=== PATIENT | female | born 1975 | race Caucasian/White ===

== ENCOUNTER 2016-11-08 13:44 | Emergency (ER) | payer OTHER ==
[~2016-11-08] VITALS: Ht 170.2 cm; Wt 124.6 kg
[~2016-11-08 13:44] MED LIST: ALBUTEROL17 G1 IH; ASPIR 8181 M1 PO; ASPIRIN325 MG PO; BACTRIM,SEPT1 TABLET PO; BENADRYL50 MG PO; BENZTROPINE ME0.5 MG PO; CEFDINIR300 MG PO; CHLORPROMAZINE25 MG PO; CHOLESTEROL MED; CITRATE OF MAG296 ML PO; CLARITIN-D 121 EACH PO; CLARITIN10 M4 PO; CLEOCIN300 MG PO; CLINDAMYCIN HC300 MG PO; COLACE10 MG/ML RIGHT EAR; COLACE100 MG PO; DEBROX15 ML BOTH EARS; DEPAKOTE ER (E500 M1 PO; DEPAKOTE500 MG PO; DESYREL100 MG PO; DIVALPROEX SOD500 MG; DOCUSATE SODIU100 MG PO; ELIMITE 5% CREA60 GM TP; FENOFIBRATE160 M1; FENOFIBRATE160 M1 PO; FERROUS SULFAT325 MG PO; FERROUS SULFATE; FIORICET 50-301 EACH PO; FIORICET,ESG1 TABLET PO; FLAGYL500 MG PO; FLEXERIL10 MG PO; FLONASE16 GM NS; FLUTICASONE PRO16 GM IH; GABAPENTIN100 MG PO; GEODON60 MG PO; GEODON80 MG PO; HYDROCODON-ACE1 EAC7 PO; KEFLEX500 MG PO; KENALOG,ARISTOC80 G1 TP; LACTINEX,FLO1 PACKET PO; LANSOPRAZOLE30 MG PO; LATUDA; LATUDA40 MG PO; LEVOTHYROXINE150 MCG PO; LIDODERM 5% P1 PATCH TD; Lopid PO; MACROBID100 MG PO; MEDROL DOSEPAK4 MG PO; MIRALAX17 GM PO; MIRALAX255 GM PO; MITRAZOL 2% CRE45 GM TP; MOBIC7.5 MG PO; MOTRIN800 MG PO; MUCUS RELIEF600 M1 PO; NAPROSYN500 MG PO; NAPROXEN500 MG PO; NEURONTIN; NIACIN ER500 MG PO; NIASPAN,SLO-NI500 MG PO; NIASPAN500 MG PO; OCEAN NASAL 0.645 ML BOTH NARES; OMEPRAZOLE20 MG PO; PAXIL30 MG PO; PAXIL40 MG PO; PROAIR HFA8.5 GM IH; PYRIDIUM200 MG PO; RISPERIDONE1 MG; RISPERIDONE1 MG PO; SEROQUEL12.5 MG PO; SEROQUEL50 MG; SIMVASTATIN10 MG PO; SIMVASTATIN20 M1 PO; TEGRETOL200 MG PO; THORAZINE25 MG PO; ULTRACET1 TABLET PO; ZOFRAN ODT4 MG PO; ZOFRAN4 MG PO; ZOLOFT25 MG PO; Zoloft PO
[2016-11-08] MEDS ORDERED: COGENTIN1 MG PO (17:25)
[2016-11-08] MEDS ORDERED: RISPERDAL1 MG PO (17:25)
[2016-11-08 17:39] VITALS: BP 125/87
== END 2016-11-08 17:40 | disposition home or self-care (01) ==
LOC: EXP 13:44 → EME 13:44 → EXP 17:40
DX: F20.9 Schizophrenia, unspecified (principal); Z76.0 Encounter for issue of repeat prescription; Z88.1 Allergy status to other antibiotic agents; Z88.6 Allergy status to analgesic agent
CPT/HCPCS: 99281; 99283

== ENCOUNTER 2016-12-08 18:58 | Emergency (ER) | payer OTHER ==
[~2016-12-08] VITALS: Ht 170.2 cm; Wt 120.3 kg
[~2016-12-08 18:58] MED LIST changes: +COGENTIN1 MG PO; +RISPERDAL1 MG PO
[2016-12-08] MEDS ORDERED: FIORICET 50-301 EACH PO (21:42)
[2016-12-08 21:47] VITALS: BP 124/95
== END 2016-12-08 21:51 | disposition home or self-care (01) ==
LOC: RME 18:58 → EME 18:58 → RME 21:51
DX: R51 Headache (principal); H53.149 Visual discomfort, unspecified; E03.9 Hypothyroidism, unspecified; J45.909 Unspecified asthma, uncomplicated; Z79.82 Long term (current) use of aspirin
CPT/HCPCS: 99281; 99284

== ENCOUNTER 2016-12-13 19:04 | Emergency (ER) | payer OTHER ==
[~2016-12-13] VITALS: Ht 170.2 cm; Wt 121.4 kg
[2016-12-13 19:32] VITALS: BP 157/72
[2016-12-13] MEDS ORDERED: MOBIC7.5 MG PO (21:15)
== END 2016-12-13 22:08 | disposition home or self-care (01) ==
LOC: RME 19:04 → EME 19:04 → RME 22:08
DX: S40.012A Contusion of left shoulder, initial encounter (principal); W10.9XXA Fall (on) (from) unspecified stairs and steps, initial encounter; Z88.0 Allergy status to penicillin; Z88.1 Allergy status to other antibiotic agents
CPT/HCPCS: 73030; 99281; 99284

== ENCOUNTER 2016-12-21 18:16 | Emergency (ER) | payer OTHER ==
[~2016-12-21] VITALS: Ht 170.2 cm; Wt 124.5 kg
[2016-12-21] MEDS ORDERED: TESSALON PERLE100 MG PO (20:15)
[2016-12-21 20:22] VITALS: BP 122/86
== END 2016-12-21 20:31 | disposition home or self-care (01) ==
LOC: EME 18:16
DX: J06.9 Acute upper respiratory infection, unspecified (principal); J02.8 Acute pharyngitis due to other specified organisms; E78.00 Pure hypercholesterolemia, unspecified; Z91.011 Allergy to milk products; Z91.012 Allergy to eggs; Z88.1 Allergy status to other antibiotic agents; Z88.5 Allergy status to narcotic agent; Z88.0 Allergy status to penicillin; Z87.891 Personal history of nicotine dependence
CPT/HCPCS: 87651 90; 99281; 99284

== ENCOUNTER 2017-01-09 19:21 | Emergency (ER) | payer OTHER ==
[~2017-01-09] VITALS: Ht 170.2 cm; Wt 122.8 kg
[~2017-01-09 19:21] MED LIST changes: +TESSALON PERLE100 MG PO
[2017-01-09 19:40] LABS: POINT-OF-CARE METER ID UU13113778
[2017-01-09 20:09] LABS: HEMATOCRIT 37.2 % (36.0-46.0); MCH 32.2 PG (29.0-34.0); MCHC 32.5 G/DL (30.0-36.0); MCV 98.9 FL (83-99); PLATELET COUNT 190 K/uL (156-360); RBC DIS.WIDTH-CV 13.2 % (11.8-14.6); RED BLOOD COUNT 3.76 M/uL (3.80-5.20); WHITE BLOOD COUNT 5.7 K/uL (4.1-10.2)
[2017-01-09 20:17] LABS: CHLORIDE 107 mEq/L (99-109); POTASSIUM 3.5 mEq/L (3.7-5.4); SODIUM 140 mEq/L (136-147)
[2017-01-09 20:19] LABS: GLUCOSE 163 mg/dL (70-99)
[2017-01-09 20:21] LABS: ANION GAP 10 MEQ/L (2-14); TOTAL BILIRUBIN 0.4 mg/dL (0.0-1.0)
[2017-01-09 20:23] LABS: ALKALINE PHOSPHATASE 60 IU/L (3-129); GFR ESTIMATE (CALCULATED) > 59 mL/min/
[2017-01-09 20:24] LABS: UREA NITROGEN (BUN) 7 mg/dL (9-23)
[2017-01-09 20:26] LABS: BILIRUBIN NEGATIVE; BLOOD NEGATIVE; COLOR STRAW ((YELLOW)); GLUCOSE (STRIP) NEGATIVE; KETONES NEGATIVE; LEUKOCYTES NEGATIVE; NITRITE NEGATIVE; PROTEIN (STRIP) NEGATIVE; SPECIFIC GRAVITY 1.002 (1.000-1.030); UROBILINOGEN 0.2 MG/DL (0.2-1.0)
[2017-01-09 20:26] LABS: LIPASE 29 U/L (1.0-51.0)
[2017-01-09 20:27] LABS: ADD MIUA? NO; UCUL ADDED? NO
[2017-01-09 20:33] LABS: QUANTITATIVE HCG < 4.0 MIU/ML
[2017-01-09 21:08] VITALS: BP 145/86
== END 2017-01-09 21:08 | disposition home or self-care (01) ==
LOC: EME 19:21
DX: R73.9 Hyperglycemia, unspecified (principal)
CPT/HCPCS: 80053; 81003; 82948; 83690; 84702; 85027; 99281; 99282

== ENCOUNTER 2017-01-15 18:11 | Emergency (ER) | payer OTHER ==
[~2017-01-15] VITALS: Ht 170.2 cm; Wt 122.4 kg
[2017-01-15] MEDS ORDERED: FLEXERIL10 MG PO (20:14)
[2017-01-15] MEDS ORDERED: NORCO 5/3251 TABLET PO (20:14)
[2017-01-15 20:26] VITALS: BP 117/92
== END 2017-01-15 20:26 | disposition home or self-care (01) ==
LOC: EXP 18:11 → EME 18:11 → EXP 20:26
DX: M54.5 Low back pain (principal); G89.29 Other chronic pain; J45.909 Unspecified asthma, uncomplicated; E78.5 Hyperlipidemia, unspecified; E03.9 Hypothyroidism, unspecified
CPT/HCPCS: 99281; 99283

== ENCOUNTER 2017-01-30 20:11 | Emergency (ER) | payer OTHER ==
[~2017-01-30] VITALS: Ht 170.2 cm; Wt 126.6 kg
[~2017-01-30 20:11] MED LIST changes: +NORCO 5/3251 TABLET PO
[2017-01-30 20:13] VITALS: BP 117/91
[2017-01-30] MEDS ORDERED: ELIMITE 5% CREA60 GM TP (21:09)
[2017-01-30] MEDS ORDERED: ULTRAM50 MG PO (21:09)
[2017-01-30] MEDS ORDERED: DELTASONE20 M1 PO (21:09)
== END 2017-01-30 21:15 | disposition home or self-care (01) ==
LOC: EME 20:11
DX: B86 Scabies (principal); M54.12 Radiculopathy, cervical region; F17.200 Nicotine dependence, unspecified, uncomplicated
CPT/HCPCS: 99281; 99283; J7512

== ENCOUNTER 2017-02-14 20:21 | Emergency (ER) | payer OTHER ==
[~2017-02-14] VITALS: Ht 170.2 cm; Wt 126.0 kg
[~2017-02-14 20:21] MED LIST changes: +DELTASONE20 M1 PO; +ULTRAM50 MG PO
[2017-02-14 20:49] VITALS: BP 131/80
[2017-02-14] MEDS ORDERED: KEFLEX500 MG PO (22:38)
[2017-02-14] MEDS ORDERED: BACTROBAN CREAM15 GM TP (22:38)
== END 2017-02-14 22:50 | disposition home or self-care (01) ==
LOC: EME 20:21
DX: S91.302A Unspecified open wound, left foot, initial encounter (principal); L03.116 Cellulitis of left lower limb; Z91.011 Allergy to milk products; Z91.012 Allergy to eggs; Z88.1 Allergy status to other antibiotic agents; Z88.0 Allergy status to penicillin; Z88.6 Allergy status to analgesic agent; Z88.8 Allergy status to other drugs, medicaments and biological substances; F17.200 Nicotine dependence, unspecified, uncomplicated
CPT/HCPCS: 99281; 99283

== ENCOUNTER 2017-03-22 21:09 | Emergency (ER) | payer OTHER ==
[~2017-03-22] VITALS: Ht 170.2 cm; Wt 123.6 kg
[~2017-03-22 21:09] MED LIST changes: +BACTROBAN CREAM15 GM TP
[2017-03-23] MEDS ORDERED: REGLAN10 MG PO (02:34)
[2017-03-23 02:47] VITALS: BP 145/88
== END 2017-03-23 02:54 | disposition home or self-care (01) ==
LOC: EME 21:09
DX: G43.909 Migraine, unspecified, not intractable, without status migrainosus (principal); J45.909 Unspecified asthma, uncomplicated; E78.5 Hyperlipidemia, unspecified; Z79.82 Long term (current) use of aspirin; F17.200 Nicotine dependence, unspecified, uncomplicated
CPT/HCPCS: 99281; 99284; J1885

== ENCOUNTER 2017-04-21 21:20 | Emergency (ER) | payer OTHER ==
[~2017-04-21] VITALS: Ht 170.2 cm; Wt 122.0 kg
[~2017-04-21 21:20] MED LIST changes: +REGLAN10 MG PO
[2017-04-22 01:16] VITALS: BP 125/78
== END 2017-04-22 01:16 | disposition home or self-care (01) ==
LOC: EME 21:20
DX: R51 Headache (principal); H53.149 Visual discomfort, unspecified; R11.0 Nausea; J45.909 Unspecified asthma, uncomplicated; E03.9 Hypothyroidism, unspecified; Z79.82 Long term (current) use of aspirin; F17.200 Nicotine dependence, unspecified, uncomplicated
CPT/HCPCS: 99281; 99284; J0595; J2405; J7030

== ENCOUNTER 2017-05-01 19:24 | Emergency (ER) | payer OTHER ==
[~2017-05-01] VITALS: Ht 170.2 cm; Wt 123.6 kg
[2017-05-01 22:22] VITALS: BP 116/90
== END 2017-05-01 22:24 | disposition home or self-care (01) ==
LOC: EME 19:24 → RME 19:24
DX: G43.909 Migraine, unspecified, not intractable, without status migrainosus (principal); E78.5 Hyperlipidemia, unspecified; E03.9 Hypothyroidism, unspecified; J45.909 Unspecified asthma, uncomplicated; F17.200 Nicotine dependence, unspecified, uncomplicated
CPT/HCPCS: 99281; 99283; J1100; J2405; J7030

== ENCOUNTER 2017-05-09 18:58 | Emergency (ER) | payer OTHER ==
[~2017-05-09] VITALS: Ht 170.2 cm; Wt 123.6 kg
[2017-05-09 20:14] VITALS: BP 120/100
== END 2017-05-09 20:16 | disposition home or self-care (01) ==
LOC: EME 18:58
DX: G43.909 Migraine, unspecified, not intractable, without status migrainosus (principal); J45.909 Unspecified asthma, uncomplicated; E78.5 Hyperlipidemia, unspecified; E03.9 Hypothyroidism, unspecified; F20.9 Schizophrenia, unspecified; F32.9 Major depressive disorder, single episode, unspecified; Z87.891 Personal history of nicotine dependence; Z88.0 Allergy status to penicillin
CPT/HCPCS: 99281; 99284; J1885

== ENCOUNTER 2017-05-13 16:22 | Emergency (ER) | payer OTHER ==
[~2017-05-13] VITALS: Ht 170.2 cm; Wt 124.0 kg
[2017-05-13 21:12] VITALS: BP 125/65
== END 2017-05-13 21:14 | disposition home or self-care (01) ==
LOC: EME 16:22
DX: R51 Headache (principal); J45.909 Unspecified asthma, uncomplicated; F31.9 Bipolar disorder, unspecified; Z88.1 Allergy status to other antibiotic agents; Z88.0 Allergy status to penicillin; Z88.6 Allergy status to analgesic agent; Z87.891 Personal history of nicotine dependence; Z90.49 Acquired absence of other specified parts of digestive tract
CPT/HCPCS: 93005; 99281; 99284; J0780; J1885

== ENCOUNTER 2017-05-28 15:44 | Emergency (ER) | payer OTHER ==
[~2017-05-28] VITALS: Ht 170.2 cm; Wt 123.3 kg
[2017-05-28] MEDS ORDERED: ULTRAM50 MG PO (16:04)
[2017-05-28 16:19] VITALS: BP 130/105
== END 2017-05-28 16:45 | disposition home or self-care (01) ==
LOC: EME 15:44
DX: M54.5 Low back pain (principal); J45.909 Unspecified asthma, uncomplicated; E78.5 Hyperlipidemia, unspecified; E03.9 Hypothyroidism, unspecified; F32.9 Major depressive disorder, single episode, unspecified; F20.9 Schizophrenia, unspecified; Z87.891 Personal history of nicotine dependence; Z88.0 Allergy status to penicillin
CPT/HCPCS: 99281; 99283

== ENCOUNTER 2017-06-13 17:52 | Emergency (ER) | payer OTHER ==
[~2017-06-13] VITALS: Ht 170.2 cm; Wt 125.3 kg
[2017-06-13 18:19] VITALS: BP 118/79
== END 2017-06-13 19:40 | disposition left against medical advice (07) ==
LOC: EME 17:52
DX: M25.511 Pain in right shoulder (principal); Z53.21 Procedure and treatment not carried out due to patient leaving prior to being seen by health care provider

== ENCOUNTER 2017-09-17 18:21 | Emergency (ER) | payer OTHER ==
[~2017-09-17] VITALS: Ht 170.2 cm; Wt 118.8 kg
[2017-09-17 19:13] VITALS: BP 137/94
== END 2017-09-17 19:14 | disposition home or self-care (01) ==
LOC: EME 18:21
DX: B34.9 Viral infection, unspecified (principal); R09.81 Nasal congestion; R05 Cough; R68.83 Chills (without fever); J45.909 Unspecified asthma, uncomplicated; E03.9 Hypothyroidism, unspecified; Z79.82 Long term (current) use of aspirin; Z87.891 Personal history of nicotine dependence
CPT/HCPCS: 99281; 99283

== ENCOUNTER 2017-09-23 10:32 | Inpatient (IN) | payer OTHER ==
[~2017-09-23] VITALS: Ht 170.2 cm; Wt 117.6 kg
[2017-09-23 11:14] LABS: HEMATOCRIT 38.4 % (36.0-46.0); MCH 29.8 PG (29.0-34.0); MCHC 32.3 G/DL (30.0-36.0); MCV 92.3 FL (83-99); MEAN PLAT.VOLUME 9.4 uM^3 (9.5-12.4); PLATELET COUNT 252 K/uL (156-360); RBC DIS.WIDTH-SD 47.4 % (39-53); RED BLOOD COUNT 4.16 M/uL (3.80-5.20); WHITE BLOOD COUNT 5.7 K/uL (4.1-10.2)
[2017-09-23 11:27] LABS: CHLORIDE 108 mEq/L (99-109); POTASSIUM 4.1 mEq/L (3.7-5.4); SODIUM 142 mEq/L (136-147)
[2017-09-23 11:29] LABS: GLUCOSE 120 mg/dL (70-99)
[2017-09-23 11:30] LABS: ANION GAP 14 MEQ/L (2-14)
[2017-09-23 11:31] LABS: TOTAL BILIRUBIN 0.3 mg/dL (0.0-1.0)
[2017-09-23 11:33] LABS: ALKALINE PHOSPHATASE 95 IU/L (3-129); GFR ESTIMATE (CALCULATED) > 59 mL/min/
[2017-09-23 11:35] LABS: UREA NITROGEN (BUN) 7 mg/dL (9-23)
[2017-09-23 11:36] LABS: SALICYLATE 5.9 MG/DL (15-30)
[2017-09-23 11:52] LABS: ADD MIUA? YES; BILIRUBIN SMALL; BLOOD LARGE; COLOR AMBER ((YELLOW)); GLUCOSE (STRIP) NEGATIVE; KETONES NEGATIVE; LEUKOCYTES NEGATIVE; NITRITE NEGATIVE; PROTEIN (STRIP) 100; SPECIFIC GRAVITY 1.044 (1.000-1.030)
[2017-09-23 12:01] LABS: INTERNAL CONTROL VALID? YES
[2017-09-23 12:10] LABS: AMPHETAMINE NEGATIVE (500 ng/mL); BARBITURATES NEGATIVE (200 ng/mL); BENZODIAZEPINES PRESUMPTIVE POSITIVE (150 ng/mL); COCAINE NEGATIVE (150 ng/mL); INTERNAL CONTROLS VALID? YES; METHADONE NEGATIVE (200 ng/mL); METHAMPHETAMINE NEGATIVE (500 ng/mL); OPIATES (MORPHINE) NEGATIVE (100 ng/mL); OXYCODONE NEGATIVE (100 ng/mL); PHENCYCLIDINE NEGATIVE (25 ng/mL); PROPOXYPHENE NEGATIVE (300 ng/mL); THC CANNABINOIDS NEGATIVE (50 ng/mL); TRICYCLIC ANTIDEPRESSANTS NEGATIVE (300 ng/mL)
[2017-09-23 12:11] LABS: ADD MEDTOX COMMENT Y; BACTERIA NONE SEEN /HPF; EPITHELIAL CELLS NONE SEEN /HPF; MUCUS NONE SEEN /LPF; RED BLOOD CELLS 0-5 /HPF (0-5); UCUL ADDED? NO; WHITE BLOOD CELLS 0-5 /HPF (0-5)
[2017-09-23 12:42] LABS: BENZODIAZEPINES QUANT VALUE 0 NG/ML; BENZODIAZEPINES, URINE SCREEN Negative (200 ng/mL)
[2017-09-23] MEDS ORDERED: OMEPRAZOLE20 MG PO (14:30)
[2017-09-23] MEDS ORDERED: METOPROLOL TART25 MG PO (14:42)
[2017-09-23 15:59] VITALS: BP 129/78
[2017-09-23 16:03] VITALS: BP 129/78
[2017-09-24 07:41] VITALS: BP 126/59
[2017-09-24 15:52] VITALS: BP 117/70
[2017-09-25 07:34] VITALS: BP 135/68
[2017-09-25 15:53] VITALS: BP 135/82
[2017-09-26 07:46] VITALS: BP 117/77
[2017-09-26] MEDS ORDERED: RISPERIDONE1 MG PO (08:38)
[2017-09-26] MEDS ORDERED: GABAPENTIN100 MG PO (08:38)
[2017-09-26] MEDS ORDERED: PAROXETINE HCL20 MG PO (08:38)
== END 2017-09-26 11:46 | disposition home or self-care (01) | DRG 885 ==
LOC: EME 10:32 → 1WEST 13:12 → EDOF 13:12 → ENRESERV 15:37 → 1WEST 15:50
PROVIDERS: Emergency Medicine
DX: F33.2 Major depressive disorder, recurrent severe without psychotic features (principal); F60.3 Borderline personality disorder; F70 Mild intellectual disabilities; T48.4X2A Poisoning by expectorants, intentional self-harm, initial encounter; T39.012A Poisoning by aspirin, intentional self-harm, initial encounter; E03.9 Hypothyroidism, unspecified; E78.00 Pure hypercholesterolemia, unspecified; J45.909 Unspecified asthma, uncomplicated; E78.5 Hyperlipidemia, unspecified; G43.909 Migraine, unspecified, not intractable, without status migrainosus; Z23 Encounter for immunization; Z91.14 Patient's other noncompliance with medication regimen; Z87.891 Personal history of nicotine dependence
CPT/HCPCS: 80053; 81003; 82607; 82746; 84443; 84703; 84999; 85027; 90686; 90839; 97150 GO; 97165 GO; 99202; 99281; 99285; G0480

== ENCOUNTER 2017-09-30 10:22 | Emergency (ER) | payer OTHER ==
[~2017-09-30] VITALS: Ht 170.2 cm; Wt 119.4 kg
[~2017-09-30 10:22] MED LIST changes: +METOPROLOL TART25 MG PO; +PAROXETINE HCL20 MG PO
[2017-09-30 10:43] VITALS: BP 109/81
== END 2017-09-30 12:56 | disposition left against medical advice (07) ==
LOC: EME 10:22
DX: R32 Unspecified urinary incontinence (principal); R30.0 Dysuria; Z53.21 Procedure and treatment not carried out due to patient leaving prior to being seen by health care provider
CPT/HCPCS: 81003

== ENCOUNTER 2017-10-27 18:35 | Emergency (ER) | payer OTHER ==
[~2017-10-27] VITALS: Ht 170.2 cm; Wt 122.3 kg
[2017-10-27 21:08] LABS: ADD MIUA? YES; BILIRUBIN NEGATIVE; BLOOD NEGATIVE; COLOR YELLOW ((YELLOW)); GLUCOSE (STRIP) NEGATIVE; KETONES NEGATIVE; LEUKOCYTES NEGATIVE; NITRITE NEGATIVE; PROTEIN (STRIP) NEGATIVE; SPECIFIC GRAVITY 1.014 (1.000-1.030)
[2017-10-27 21:20] LABS: BACTERIA RARE /HPF; EPITHELIAL CELLS 1+ /HPF; MUCUS TRACE /LPF; RED BLOOD CELLS 0-5 /HPF (0-5); UCUL ADDED? NO; WHITE BLOOD CELLS 0-5 /HPF (0-5)
[2017-10-27] MEDS ORDERED: KEFLEX500 MG PO (22:32)
[2017-10-27 22:44] VITALS: BP 122/93
== END 2017-10-27 22:45 | disposition home or self-care (01) ==
LOC: EME 18:35
DX: R30.0 Dysuria (principal); R32 Unspecified urinary incontinence; J45.909 Unspecified asthma, uncomplicated; K21.9 Gastro-esophageal reflux disease without esophagitis; E78.5 Hyperlipidemia, unspecified; E03.9 Hypothyroidism, unspecified; F20.9 Schizophrenia, unspecified; F41.9 Anxiety disorder, unspecified; F32.9 Major depressive disorder, single episode, unspecified; F31.9 Bipolar disorder, unspecified; Z87.891 Personal history of nicotine dependence; Z90.49 Acquired absence of other specified parts of digestive tract; Z88.0 Allergy status to penicillin; Z88.1 Allergy status to other antibiotic agents; Z88.5 Allergy status to narcotic agent; Z88.6 Allergy status to analgesic agent
CPT/HCPCS: 81003; 87086; 99281; 99284

== ENCOUNTER 2017-11-01 22:24 | Emergency (ER) | payer OTHER ==
[~2017-11-01] VITALS: Ht 170.2 cm; Wt 125.1 kg
[2017-11-01] MEDS ORDERED: MOTRIN600 MG PO (23:30)
[2017-11-01] MEDS ORDERED: KEFLEX500 MG PO (23:30)
[2017-11-01 23:39] VITALS: BP 128/75
== END 2017-11-01 23:39 | disposition home or self-care (01) ==
LOC: EME 22:24 → EXP 22:24
DX: K02.9 Dental caries, unspecified (principal); Z88.0 Allergy status to penicillin; Z88.5 Allergy status to narcotic agent; Z88.1 Allergy status to other antibiotic agents; Z88.6 Allergy status to analgesic agent
CPT/HCPCS: 99281; 99283

== ENCOUNTER 2017-11-02 17:30 | Emergency (ER) | payer OTHER ==
[~2017-11-02] VITALS: Ht 170.2 cm; Wt 124.0 kg
[~2017-11-02 17:30] MED LIST changes: +MOTRIN600 MG PO
[2017-11-02 18:15] LABS: HEMATOCRIT 35.6 % (36.0-46.0); HEMOGLOBIN 11.2 G/DL (11.9-15.5); MCH 28.9 PG (29.0-34.0); MCHC 31.5 G/DL (30.0-36.0); PLATELET COUNT 220 K/uL (156-360); RBC DIS.WIDTH-CV 13.7 % (11.8-14.6); RBC DIS.WIDTH-SD 46.5 % (39-53); RED BLOOD COUNT 3.87 M/uL (3.80-5.20); WHITE BLOOD COUNT 5.8 K/uL (4.1-10.2)
[2017-11-02 18:23] LABS: ALBUMIN 3.8 g/dL (3.2-4.8); CHLORIDE 105 mEq/L (99-109); POTASSIUM 3.6 mEq/L (3.7-5.4); SODIUM 139 mEq/L (136-147)
[2017-11-02 18:25] LABS: GLUCOSE 135 mg/dL (70-99); TOTAL PROTEIN 7.6 g/dL (6.4-8.3)
[2017-11-02 18:27] LABS: TOTAL BILIRUBIN 0.2 mg/dL (0.0-1.0)
[2017-11-02 18:29] LABS: ALKALINE PHOSPHATASE 103 IU/L (3-129); CREATININE 0.9 mg/dL (0.6-1.3); GFR ESTIMATE (CALCULATED) > 59 mL/min/
[2017-11-02 18:30] LABS: UREA NITROGEN (BUN) 10 mg/dL (9-23)
[2017-11-02 18:31] LABS: AST (GOT) 42 IU/L (2-34)
[2017-11-02 18:32] LABS: ALT (GPT) 35 IU/L (3-49)
[2017-11-02 18:37] LABS: QUANTITATIVE HCG < 4.0 MIU/ML
[2017-11-02 18:39] LABS: APPEARANCE CLEAR ((CLEAR)); BILIRUBIN NEGATIVE; BLOOD NEGATIVE; COLOR STRAW ((YELLOW)); GLUCOSE (STRIP) NEGATIVE; KETONES NEGATIVE; LEUKOCYTES NEGATIVE; NITRITE NEGATIVE; PROTEIN (STRIP) NEGATIVE; SPECIFIC GRAVITY 1.005 (1.000-1.030); UCUL ADDED? NO; UROBILINOGEN 0.2 MG/DL (0.2-1.0)
[2017-11-02 19:51] VITALS: BP 137/83
== END 2017-11-02 19:53 | disposition home or self-care (01) ==
LOC: EME 17:30
DX: R35.0 Frequency of micturition (principal); R30.0 Dysuria; J45.909 Unspecified asthma, uncomplicated; F41.9 Anxiety disorder, unspecified; F32.9 Major depressive disorder, single episode, unspecified; E78.5 Hyperlipidemia, unspecified; E03.9 Hypothyroidism, unspecified; F20.9 Schizophrenia, unspecified; Z88.0 Allergy status to penicillin; Z88.5 Allergy status to narcotic agent; Z88.1 Allergy status to other antibiotic agents
CPT/HCPCS: 80053; 81003; 84702; 85027; 99281; 99283

== ENCOUNTER 2017-11-25 21:55 | Emergency (ER) | payer OTHER ==
[~2017-11-25] VITALS: Ht 170.2 cm; Wt 125.7 kg
[2017-11-25 22:23] LABS: APPEARANCE SL.HAZY ((CLEAR)); BILIRUBIN NEGATIVE; BLOOD LARGE; COLOR YELLOW ((YELLOW)); GLUCOSE (STRIP) NEGATIVE; KETONES NEGATIVE; LEUKOCYTES TRACE; NITRITE NEGATIVE; PROTEIN (STRIP) 30; SPECIFIC GRAVITY 1.016 (1.000-1.030)
[2017-11-25 22:37] LABS: BACTERIA RARE /HPF; EPITHELIAL CELLS 2+ /HPF; MUCUS NONE SEEN /LPF; UCUL ADDED? NO; WHITE BLOOD CELLS 0-5 /HPF (0-5)
[2017-11-25 22:39] LABS: HEMATOCRIT 31.1 % (36.0-46.0); HEMOGLOBIN 9.6 G/DL (11.9-15.5); MCH 27.6 PG (29.0-34.0); MCHC 30.9 G/DL (30.0-36.0); MCV 89.4 FL (83-99); PLATELET COUNT 182 K/uL (156-360); RBC DIS.WIDTH-CV 13.6 % (11.8-14.6); RBC DIS.WIDTH-SD 44.4 % (39-53); RED BLOOD COUNT 3.48 M/uL (3.80-5.20); WHITE BLOOD COUNT 4.9 K/uL (4.1-10.2)
[2017-11-25 22:50] LABS: ALBUMIN 3.7 g/dL (3.2-4.8); CHLORIDE 105 mEq/L (99-109); POTASSIUM 3.8 mEq/L (3.7-5.4); SODIUM 137 mEq/L (136-147)
[2017-11-25 22:52] LABS: GLUCOSE 107 mg/dL (70-99)
[2017-11-25 22:53] LABS: TOTAL PROTEIN 7.2 g/dL (6.4-8.3)
[2017-11-25 22:54] LABS: TOTAL BILIRUBIN 0.2 mg/dL (0.0-1.0)
[2017-11-25 22:56] LABS: ALKALINE PHOSPHATASE 102 IU/L (3-129); CREATININE 0.8 mg/dL (0.6-1.3); GFR ESTIMATE (CALCULATED) > 59 mL/min/
[2017-11-25 22:57] LABS: UREA NITROGEN (BUN) 8 mg/dL (9-23)
[2017-11-25 22:58] LABS: AST (GOT) 52 IU/L (2-34)
[2017-11-25 22:59] LABS: ALT (GPT) 37 IU/L (3-49); LIPASE 29 U/L (1.0-51.0)
[2017-11-25 23:05] LABS: QUANTITATIVE HCG < 4.0 MIU/ML
[2017-11-26] MEDS ORDERED: ZOFRAN4 MG PO (01:09)
[2017-11-26] MEDS ORDERED: BENTYL10 MG PO (01:09)
[2017-11-26 01:30] VITALS: BP 129/89
== END 2017-11-26 01:30 | disposition home or self-care (01) ==
LOC: EME 21:55
DX: R10.84 Generalized abdominal pain (principal); J45.909 Unspecified asthma, uncomplicated; E78.5 Hyperlipidemia, unspecified; E03.9 Hypothyroidism, unspecified; F20.9 Schizophrenia, unspecified; F31.9 Bipolar disorder, unspecified; F41.9 Anxiety disorder, unspecified; F32.9 Major depressive disorder, single episode, unspecified; Z90.49 Acquired absence of other specified parts of digestive tract; Z79.82 Long term (current) use of aspirin; Z88.0 Allergy status to penicillin; Z88.1 Allergy status to other antibiotic agents; Z88.5 Allergy status to narcotic agent
CPT/HCPCS: 80053; 81003; 83690; 84702; 85027; 99281; 99284

== ENCOUNTER 2017-12-08 21:04 | Emergency (ER) | payer OTHER ==
[~2017-12-08] VITALS: Ht 170.2 cm; Wt 127.4 kg
[~2017-12-08 21:04] MED LIST changes: +BENTYL10 MG PO
[2017-12-09 00:55] VITALS: BP 124/90
== END 2017-12-09 00:55 | disposition home or self-care (01) ==
LOC: EME 21:04
DX: K59.00 Constipation, unspecified (principal); Z88.0 Allergy status to penicillin; Z88.5 Allergy status to narcotic agent; Z88.1 Allergy status to other antibiotic agents; Z88.6 Allergy status to analgesic agent
CPT/HCPCS: 74018; 99281; 99283

== ENCOUNTER 2017-12-24 16:35 | Emergency (ER) | payer OTHER ==
[~2017-12-24] VITALS: Ht 170.2 cm; Wt 127.8 kg
[2017-12-24 16:39] VITALS: BP 119/87
== END 2017-12-24 21:22 | disposition left against medical advice (07) ==
LOC: EME 16:35
DX: R20.0 Anesthesia of skin (principal); Z53.21 Procedure and treatment not carried out due to patient leaving prior to being seen by health care provider

== ENCOUNTER 2018-01-11 21:41 | Emergency (ER) | payer OTHER ==
[~2018-01-11] VITALS: Ht 170.2 cm; Wt 129.4 kg
[2018-01-11 22:35] LABS: HEMATOCRIT 31.8 % (36.0-46.0); HEMOGLOBIN 9.7 G/DL (11.9-15.5); MCH 26.9 PG (29.0-34.0); MCHC 30.5 G/DL (30.0-36.0); MCV 88.1 FL (83-99); PLATELET COUNT 213 K/uL (156-360); RBC DIS.WIDTH-CV 14.4 % (11.8-14.6); RBC DIS.WIDTH-SD 46.4 % (39-53); RED BLOOD COUNT 3.61 M/uL (3.80-5.20); WHITE BLOOD COUNT 5.6 K/uL (4.1-10.2)
[2018-01-11 22:48] LABS: ALBUMIN 3.8 g/dL (3.2-4.8); CHLORIDE 103 mEq/L (99-109); POTASSIUM 3.7 mEq/L (3.7-5.4); SODIUM 138 mEq/L (136-147)
[2018-01-11 22:50] LABS: GLUCOSE 164 mg/dL (70-99); TOTAL PROTEIN 7.8 g/dL (6.4-8.3)
[2018-01-11 22:52] LABS: TOTAL BILIRUBIN 0.3 mg/dL (0.0-1.0)
[2018-01-11 22:54] LABS: ALKALINE PHOSPHATASE 102 IU/L (3-129); CREATININE 0.8 mg/dL (0.6-1.3); GFR ESTIMATE (CALCULATED) > 59 mL/min/
[2018-01-11 22:55] LABS: UREA NITROGEN (BUN) 5 mg/dL (9-23)
[2018-01-11 22:56] LABS: AST (GOT) 68 IU/L (2-34)
[2018-01-11 22:57] LABS: ALT (GPT) 44 IU/L (3-49)
[2018-01-11 23:12] VITALS: BP 145/87
== END 2018-01-11 23:13 | disposition home or self-care (01) ==
LOC: EME 21:41
DX: R32 Unspecified urinary incontinence (principal); E78.5 Hyperlipidemia, unspecified; J45.909 Unspecified asthma, uncomplicated; E03.9 Hypothyroidism, unspecified; F41.9 Anxiety disorder, unspecified; F32.9 Major depressive disorder, single episode, unspecified; F31.9 Bipolar disorder, unspecified; F20.9 Schizophrenia, unspecified; Z90.49 Acquired absence of other specified parts of digestive tract; Z79.82 Long term (current) use of aspirin; Z88.5 Allergy status to narcotic agent; Z88.0 Allergy status to penicillin; Z88.6 Allergy status to analgesic agent; Z88.1 Allergy status to other antibiotic agents
CPT/HCPCS: 80053; 81003; 85027; 99281; 99284

== ENCOUNTER 2018-01-13 16:49 | Emergency (ER) | payer OTHER ==
[~2018-01-13] VITALS: Ht 170.2 cm; Wt 129.3 kg
[2018-01-13 18:20] VITALS: BP 110/77
== END 2018-01-13 18:31 | disposition home or self-care (01) ==
LOC: EME 16:49
DX: F32.9 Major depressive disorder, single episode, unspecified (principal); R00.0 Tachycardia, unspecified; J45.909 Unspecified asthma, uncomplicated; E78.5 Hyperlipidemia, unspecified; E03.9 Hypothyroidism, unspecified; F41.9 Anxiety disorder, unspecified; F31.9 Bipolar disorder, unspecified; F20.9 Schizophrenia, unspecified; Z79.82 Long term (current) use of aspirin; Z79.51 Long term (current) use of inhaled steroids; Z90.49 Acquired absence of other specified parts of digestive tract; Z91.011 Allergy to milk products; Z91.012 Allergy to eggs; Z88.1 Allergy status to other antibiotic agents; Z88.5 Allergy status to narcotic agent; Z88.0 Allergy status to penicillin; Z88.6 Allergy status to analgesic agent; Z91.048 Other nonmedicinal substance allergy status
CPT/HCPCS: 93005; 99281; 99283

== ENCOUNTER 2018-01-27 11:50 | Emergency (ER) | payer OTHER ==
[~2018-01-27] VITALS: Ht 170.2 cm; Wt 128.0 kg
[2018-01-27 12:53] LABS: HEMATOCRIT 33.3 % (36.0-46.0); HEMOGLOBIN 10.2 G/DL (11.9-15.5); MCH 26.4 PG (29.0-34.0); MCHC 30.6 G/DL (30.0-36.0); PLATELET COUNT 202 K/uL (156-360); RBC DIS.WIDTH-CV 14.9 % (11.8-14.6); RBC DIS.WIDTH-SD 46.7 % (39-53); RED BLOOD COUNT 3.87 M/uL (3.80-5.20); WHITE BLOOD COUNT 6.6 K/uL (4.1-10.2)
[2018-01-27 13:16] LABS: CHLORIDE 105 mEq/L (99-109); SODIUM 138 mEq/L (136-147)
[2018-01-27 13:17] LABS: GLUCOSE 110 mg/dL (70-99)
[2018-01-27 13:21] LABS: CREATININE 0.8 mg/dL (0.6-1.3); GFR ESTIMATE (CALCULATED) > 59 mL/min/
[2018-01-27 13:22] LABS: UREA NITROGEN (BUN) 9 mg/dL (9-23)
[2018-01-27 14:26] LABS: ALBUMIN 3.9 g/dL (3.2-4.8)
[2018-01-27 14:29] LABS: TOTAL PROTEIN 8.1 g/dL (6.4-8.3)
[2018-01-27 14:31] LABS: TOTAL BILIRUBIN 0.4 mg/dL (0.0-1.0)
[2018-01-27 14:32] LABS: ALKALINE PHOSPHATASE 96 IU/L (3-129)
[2018-01-27 14:34] LABS: AST (GOT) 50 IU/L (2-34)
[2018-01-27 14:35] LABS: ALT (GPT) 28 IU/L (3-49); DIRECT BILIRUBIN 0.2 mg/dL (0.0-0.3)
[2018-01-27 14:36] LABS: LIPASE 17 U/L (1.0-51.0)
[2018-01-27 14:41] LABS: QUANTITATIVE HCG < 4.0 MIU/ML
[2018-01-27 15:53] LABS: APPEARANCE SL.HAZY ((CLEAR)); BILIRUBIN NEGATIVE; BLOOD NEGATIVE; COLOR YELLOW ((YELLOW)); GLUCOSE (STRIP) NEGATIVE; KETONES NEGATIVE; LEUKOCYTES NEGATIVE; NITRITE NEGATIVE; PROTEIN (STRIP) NEGATIVE; UROBILINOGEN 0.2 MG/DL (0.2-1.0)
[2018-01-27 16:07] LABS: BACTERIA 3+ /HPF; EPITHELIAL CELLS 1+ /HPF; MUCUS TRACE /LPF; RED BLOOD CELLS 0-5 /HPF (0-5); UCUL ADDED? YES; WHITE BLOOD CELLS 0-5 /HPF (0-5)
[2018-01-27 16:39] VITALS: BP 103/76
== END 2018-01-27 16:40 | disposition left against medical advice (07) ==
LOC: EME 11:50
PROVIDERS: Physician Assistant
DX: R10.13 Epigastric pain (principal); J45.909 Unspecified asthma, uncomplicated; E78.5 Hyperlipidemia, unspecified; F41.9 Anxiety disorder, unspecified; E03.9 Hypothyroidism, unspecified; F31.9 Bipolar disorder, unspecified; Z88.5 Allergy status to narcotic agent; Z88.0 Allergy status to penicillin; Z88.1 Allergy status to other antibiotic agents
CPT/HCPCS: 80048; 80076; 81003; 83690; 84702; 85027; 86850; 86900; 86901; 87086; 99281; 99284; J7030

== ENCOUNTER 2018-04-21 12:10 | Emergency (ER) | payer OTHER ==
[~2018-04-21] VITALS: Ht 170.2 cm; Wt 125.0 kg
[2018-04-21 12:59] LABS: HEMATOCRIT 33.6 % (36.0-46.0); HEMOGLOBIN 9.8 G/DL (11.9-15.5); MCH 23.6 PG (29.0-34.0); MCHC 29.2 G/DL (30.0-36.0); MCV 80.8 FL (83-99); PLATELET COUNT 253 K/uL (156-360); RBC DIS.WIDTH-CV 15.5 % (11.8-14.6); RBC DIS.WIDTH-SD 45.3 % (39-53); RED BLOOD COUNT 4.16 M/uL (3.80-5.20); WHITE BLOOD COUNT 9.5 K/uL (4.1-10.2)
[2018-04-21 13:07] LABS: CHLORIDE 106 mEq/L (99-109); POTASSIUM 4.1 mEq/L (3.7-5.4)
[2018-04-21 13:08] LABS: SODIUM 141 mEq/L (136-147)
[2018-04-21 13:09] LABS: GLUCOSE 126 mg/dL (70-99)
[2018-04-21 13:13] LABS: CREATININE 0.9 mg/dL (0.6-1.3); GFR ESTIMATE (CALCULATED) > 59 mL/min/
[2018-04-21 13:14] LABS: UREA NITROGEN (BUN) 5 mg/dL (9-23)
[2018-04-21] MEDS ORDERED: ZYRTEC10 M3 PO (13:21)
[2018-04-21] MEDS ORDERED: KEFLEX500 MG PO (13:21)
[2018-04-21 13:35] LABS: QUANTITATIVE HCG < 4.0 MIU/ML
[2018-04-21 13:48] VITALS: BP 138/78
== END 2018-04-21 13:49 | disposition home or self-care (01) ==
LOC: EME 12:10
DX: B34.9 Viral infection, unspecified (principal); L03.114 Cellulitis of left upper limb; L03.113 Cellulitis of right upper limb; D64.9 Anemia, unspecified; R00.0 Tachycardia, unspecified; Z91.011 Allergy to milk products; Z91.012 Allergy to eggs; Z88.1 Allergy status to other antibiotic agents; Z88.5 Allergy status to narcotic agent; Z88.0 Allergy status to penicillin; Z88.6 Allergy status to analgesic agent; Z88.8 Allergy status to other drugs, medicaments and biological substances
CPT/HCPCS: 80048; 84702; 85027; 87077; 87081; 87651 90; 99281; 99283

== ENCOUNTER 2018-05-07 17:20 | Emergency (ER) | payer OTHER ==
[~2018-05-07] VITALS: Ht 170.2 cm; Wt 123.0 kg
[~2018-05-07 17:20] MED LIST changes: +ZYRTEC10 M3 PO
[2018-05-07] MEDS ORDERED: PREDNISONE10 MG PO (17:36)
[2018-05-07 19:05] VITALS: BP 129/103
== END 2018-05-07 19:05 | disposition home or self-care (01) ==
LOC: EME 17:20
DX: M54.41 Lumbago with sciatica, right side (principal); I10 Essential (primary) hypertension; E03.9 Hypothyroidism, unspecified
CPT/HCPCS: 99281; 99284; J7512

== ENCOUNTER 2018-05-22 19:40 | Emergency (ER) | payer OTHER ==
[~2018-05-22] VITALS: Ht 170.2 cm; Wt 124.4 kg
[~2018-05-22 19:40] MED LIST changes: +PREDNISONE10 MG PO
[2018-05-22 20:09] LABS: HEMATOCRIT 29.2 % (36.0-46.0); HEMOGLOBIN 8.3 G/DL (11.9-15.5); MCH 22.1 PG (29.0-34.0); MCHC 28.4 G/DL (30.0-36.0); MCV 77.7 FL (83-99); PLATELET COUNT 261 K/uL (156-360); RBC DIS.WIDTH-SD 48.2 % (39-53); RED BLOOD COUNT 3.76 M/uL (3.80-5.20); WHITE BLOOD COUNT 12.1 K/uL (4.1-10.2)
[2018-05-22 20:18] LABS: CHLORIDE 102 mEq/L (99-109); POTASSIUM 4.1 mEq/L (3.7-5.4); SODIUM 139 mEq/L (136-147)
[2018-05-22 20:20] LABS: GLUCOSE 104 mg/dL (70-99)
[2018-05-22 20:24] LABS: GFR ESTIMATE (CALCULATED) > 59 mL/min/
[2018-05-22 20:25] LABS: UREA NITROGEN (BUN) 14 mg/dL (9-23)
[2018-05-22 20:29] LABS: TROP-I INTERPRETATION NEGATIVE; TROPONIN-I < 0.01 ng/mL (0.0-0.30)
[2018-05-22] MEDS ORDERED: PREDNISONE20 MG PO (21:14)
[2018-05-22 21:35] VITALS: BP 118/88
== END 2018-05-22 21:48 | disposition home or self-care (01) ==
LOC: EME 19:40
DX: J45.901 Unspecified asthma with (acute) exacerbation (principal); R00.0 Tachycardia, unspecified; E03.9 Hypothyroidism, unspecified; Z79.82 Long term (current) use of aspirin
CPT/HCPCS: 71046; 80048; 84484; 85027; 93005; 94640; 99281; 99284; J7512

== ENCOUNTER 2018-06-17 18:23 | Emergency (ER) | payer OTHER ==
[~2018-06-17] VITALS: Ht 170.2 cm; Wt 126.5 kg
[~2018-06-17 18:23] MED LIST changes: +PREDNISONE20 MG PO
[2018-06-17 20:12] LABS: HEMATOCRIT 30.2 % (36.0-46.0); HEMOGLOBIN 8.6 G/DL (11.9-15.5); MCH 24.1 PG (29.0-34.0); MCHC 28.5 G/DL (30.0-36.0); MCV 84.6 FL (83-99); PLATELET COUNT 222 K/uL (156-360); RBC DIS.WIDTH-CV 22.1 % (11.8-14.6); RBC DIS.WIDTH-SD 67.4 % (39-53); RED BLOOD COUNT 3.57 M/uL (3.80-5.20)
[2018-06-17 20:22] LABS: CHLORIDE 106 mEq/L (99-109); POTASSIUM 3.8 mEq/L (3.7-5.4); SODIUM 138 mEq/L (136-147)
[2018-06-17 20:23] LABS: GLUCOSE 114 mg/dL (70-99)
[2018-06-17 20:27] LABS: CREATININE 0.8 mg/dL (0.6-1.3); GFR ESTIMATE (CALCULATED) > 59 mL/min/
[2018-06-17 20:28] LABS: UREA NITROGEN (BUN) 5 mg/dL (9-23)
[2018-06-17 20:37] LABS: QUANTITATIVE HCG < 4.0 MIU/ML
[2018-06-17 20:38] LABS: TROP-I INTERPRETATION NEGATIVE; TROPONIN-I < 0.01 ng/mL (0.0-0.30)
[2018-06-17] MEDS ORDERED: VENTOLIN HFA18 GM IH (21:11)
[2018-06-17 22:13] VITALS: BP 117/63
== END 2018-06-17 22:15 | disposition home or self-care (01) ==
LOC: EME 18:23
PROVIDERS: Physician Assistant
DX: J45.901 Unspecified asthma with (acute) exacerbation (principal); F41.9 Anxiety disorder, unspecified; R73.9 Hyperglycemia, unspecified; D64.9 Anemia, unspecified; E78.5 Hyperlipidemia, unspecified; I10 Essential (primary) hypertension; F32.9 Major depressive disorder, single episode, unspecified; E03.9 Hypothyroidism, unspecified; F20.9 Schizophrenia, unspecified; Z88.5 Allergy status to narcotic agent; Z88.0 Allergy status to penicillin; Z88.6 Allergy status to analgesic agent
CPT/HCPCS: 71046; 80048; 84484; 84702; 85027; 85379; 93005; 99281; 99284

== ENCOUNTER 2018-07-02 14:58 | Emergency (ER) | payer OTHER ==
[~2018-07-02] VITALS: Ht 170.2 cm; Wt 129.6 kg
[~2018-07-02 14:58] MED LIST changes: +VENTOLIN HFA18 GM IH
[2018-07-02] MEDS ORDERED: MOTRIN800 MG PO (16:08)
[2018-07-02 16:25] VITALS: BP 109/89
== END 2018-07-02 16:26 | disposition home or self-care (01) ==
LOC: EME 14:58
DX: M79.644 Pain in right finger(s) (principal); E11.9 Type 2 diabetes mellitus without complications; F31.9 Bipolar disorder, unspecified; F20.9 Schizophrenia, unspecified; Z88.0 Allergy status to penicillin; Z88.5 Allergy status to narcotic agent; Z88.1 Allergy status to other antibiotic agents; Z88.6 Allergy status to analgesic agent
CPT/HCPCS: 73130; 99281; 99283